=== PATIENT | male | born 2000 | race Caucasian/White ===

== ENCOUNTER 2022-03-25 20:51 | Emergency (ER) | payer MEDICAID, SELFPAY ==
--- NOTE | 2022-03-25 | ECG_ITS ---
Test Reason : chest pain Blood Pressure : / mmHG Vent. Rate : 078 BPM Atrial Rate : 078 BPM P-R Int : 152 ms QRS Dur : 082 ms QT Int : 382 ms P-R-T Axes : 076 080 036 degrees QTc Int : 435 ms Normal sinus rhythm with sinus arrhythmia Normal ECG No previous ECGs available Referred By: Generic ED Physician Electronically Signed By:HUNTER SUTTON
--- NOTE | ~2022-03-25 | NM_ITS ---
EXAMINATION: PULMONARY PERFUSION STUDY CLINICAL INFORMATION: Chest pain and cough. COMPARISON: No previous lung scan is available for comparison. Radiographs the chest dated 03/25/2022 are available for comparison. TECHNIQUE: Following the intravenous administration of 4.0 mCi Tc-99m MAA an 8-view perfusion study was performed using a dual detector gamma scintillation camera. No ventilation images were obtained. FINDINGS: Perfusion images: No segmental perfusion defects are present. Multiple wedge shaped peripherally based subsegmental perfusion defects are present bilaterally, predominantly in the upper lobes. The chest radiographs dated 03/25/2022 show no abnormalities that corresponds to the subsegmental perfusion defects described above. NM/NM pul perfusion IMPRESSION: Intermediate probability of pulmonary embolism. Follow-up with pulmonary embolism protocol CT scan of the chest is recommended.
--- NOTE | ~2022-03-25 | XR_ITS ---
EXAMINATION: XR CHEST CLINICAL INFORMATION: Chest pain and cough COMPARISON: None TECHNIQUE: 2 views of the chest were obtained. FINDINGS: No significant abnormality is noted involving the heart, lungs, mediastinum, bony thorax or soft tissues. XR/XR chest 2V IMPRESSION: Unremarkable examination.
--- NOTE | ~2022-03-25 | CT_ITS ---
EXAMINATION: CT ANGIOGRAM OF THE CHEST WITH CONTRAST (CT PULMONARY ANGIOGRAM FOR PE) CLINICAL INFORMATION: Chest pain. Evaluate for pulmonary embolism. COMPARISON: CXR from 03/25/2022 TECHNIQUE: Prior to contrast administration, noncontrast localization images were obtained. Subsequently, multidetector volumetric imaging was performed from the thoracic inlet to below the diaphragms following the administration of 65 mL Omnipaque 300 intravenous contrast. No contrast reaction reported. Sagittal, coronal, and MIP oblique sagittal reformatted images were obtained on the CT workstation, uploaded to PACS, and reviewed. This CT examination was performed using dose optimization techniques as appropriate, variously including the following: *Automated exposure control *Adjustment of mA and/or kV according to patient size (this includes techniques or standardized protocols for targeted exams where dose is matched to indication/reason for exam; i.e. extremities or head) *Use of iterative reconstruction technique DLP: Total exam dose-length product 446 mGy-cm FINDINGS: LUNGS AND PLEURA: The bronchial jamison are diffusely thickened. This could be a manifestation of asthma or bronchitis. There is mild patchy groundglass opacity in the medial right upper lobe and anteromedial right lower lobe from atelectasis or pneumonitis. No dense consolidation, edema or pleural effusion. No pneumothorax. QUALITY OF STUDY/CONTRAST BOLUS: Satisfactory. CARDIOVASCULAR: Pulmonary arteries are normal in size. No embolic filling defects in the main, lobar or segmental vessels. The heart size is normal. No pericardial effusion. Thoracic aorta is normal; no aneurysm or dissection. The great vessels arising from the top of the aortic arch are widely patent. MEDIASTINUM/LOWER NECK: The esophagus has normal wall thickness. The visualized portion of the thyroid gland is normal. There is some residual thymic tissue in the anterosuperior mediastinum. Pneumomediastinum is present. The gas within mediastinum tracks superiorly into the lower neck. LYMPHATICS: No pathologic sized axillary, hilar or mediastinal lymph nodes. UPPER ABDOMEN: No contrast reflux into the inferior vena cava. No acute abnormalities in the visualized solid or hollow viscera of the upper abdomen. There is likely a small calcified stone either within cystic duct or underdistended gallbladder. OSSEOUS STRUCTURES: No acute or suspicious osseous abnormality. CT/CT angio chest PE protocol IMPRESSION: * No evidence of pulmonary embolism. * The diffuse thickening of bronchial jamison could be a manifestation of asthma or bronchitis. Also, there are a few small patchy groundglass opacities from infectious or noninfectious pneumonitis. * Pneumomediastinum is present. A pneumomediastinum can occur when there is a rapid rise in intra-alveolar pressure in patients with asthma, during valsalva maneuver and/or vigorous coughing.
--- NOTE | ~2022-03-25 | CT_ITS ---
EXAMINATION: CT CHEST WITHOUT CONTRAST CLINICAL INFORMATION: Pneumomediastinum COMPARISON: CT angiogram chest approximately 2 hours ago. TECHNIQUE: Multidetector volumetric CT imaging of the chest was done. Axial MIP volume rendering provided. Sagittal and coronal reformatted images were obtained. No IV contrast was utilized for the exam. However, oral contrast was administered. This CT examination was performed using dose optimization techniques as appropriate, variously including the following: *Automated exposure control *Adjustment of mA and/or kV according to patient size (this includes techniques or standardized protocols for targeted exams where dose is matched to indication/reason for exam; i.e. extremities or head) *Use of iterative reconstruction technique DLP: 832 mGy-cm FINDINGS: LUNGS AND MEDIASTINUM: Since the prior study there's been no interval change. Once again noted is bronchial thickening and a small area of groundglass opacity in each lower lobe. Again seen is mediastinal emphysema. There is no convincing evidence of esophageal rupture. Residual thymic tissue is again seen. PLEURA: There is no pleural effusion. No pleural mass or thickening. No pneumothorax. AXILLA: No lymphadenopathy. UPPER ABDOMEN: Unremarkable. Contrast is present in the renal collecting systems from the prior administration. OSSEOUS STRUCTURES: Unremarkable. CT/CT chest wo con IMPRESSION: No interval change when compared to the prior study, 2 hours ago. Mediastinal emphysema is again seen. No convincing evidence of esophageal rupture. Fleischner guidelines were followed.
[2022-03-25 21:02] VITALS: BP 138/97; PULSE 66; RESP 18; TEMP 37; O2SAT 97; BMI 24.4
[2022-03-25 21:34] LABS: COVID-19 Test Negative (Negative); IDNOW Serial# 16C4AD1C
[2022-03-25 21:35] LABS: Influenza A Negative (Negative); Influenza B2 Negative (Negative)
[2022-03-26] VITALS (7 sets, daily range): BP systolic 128–143; BP diastolic 71–86; PULSE 54–80; RESP 12–17; TEMP 36.5–36.7; O2SAT 95–99
--- NOTE | 2022-03-26 08:01 | ED_ITS ---
HPI - Chest Pain General Chief Complaint: Chest Pain Stated Complaint: SoB, chest pain, on and off fever Time Seen by Provider: 03/26/22 07:55 Source: patient Mode of arrival: ambulatory Limitations: no limitations History of Present Illness HPI narrative: this is a 21 years old male presented to the ED complaining of shortness of breath and chest pain for couple of days , he endore also cough and fever complaint: chest pain Onset (ago): day(s) (2) Timing of current episode: constant Prior episodes: No Onset: during rest Pain location: substernal Pain radiation: none Exacerbating factors: nothing Risk Factors Coronary artery disease risk factors: none Related Data Previous Rx's Medication Instructions Recorded doxycycline monohydrate 100 mg 100 mg PO BID #14 cap 03/26/22 capsule prednisone 20 mg tablet 60 mg PO DAILY #12 tab 03/26/22 Allergies Allergy/AdvReac Type Severity Reaction Status Date / Time No Known Allergies Allergy Unverified 07/26/20 19:39 [No Known Allergies*] Review of Systems Review of Systems: Yes all other systems are reviewed and are negative Constitutional: Constitutional: Reports no additional constitutional complaints ENT: Reports system reviewed and no additional complaints, except as documented Cardiovascular: Cardiovascular: Reports no additional cardiovascular complaints Respiratory: Respiratory: Reports no additional respiratory complaints, Reports no additional respiratory complaints, Reports pain on inspiration and Reports pain with cough Integumentary/Breasts: Skin/Breast: Reports system reviewed and no additional complaints, except as docu [facility] Social History Social History Patient Tobacco Use Status: Never used Tobacco Use of substances other than those prescribed or required for medical reasons: No Advance Directives: No Advance Directives Information Provided: No Physical Exam Vital Signs: Vital Signs: Last Vital Signs Temp 97.7 F 03/26/22 07:44 Pulse 54 03/26/22 15:52 Resp 16 03/26/22 15:52 BP 143/77 H 03/26/22 15:52 Pulse Ox 98 03/26/22 15:52 BMI result Body Mass Index 24.4 Const: General: cooperative Nutritional Appearance: average body habitus Limitations: no limitations HEENT: Head: Yes normal to inspection Ears: hearing grossly normal bilaterally Face and sinus: Yes normal facial exam Mouth: Normal oral and palatal mucosa present Throat: Yes posterior oropharynx normal Neck: Neck: Yes normal visual inspection, Yes full ROM and Yes no lymphadenopathy Chest: Chest palpation & inspection: normal inspection of the chest Resp: Effort & Inspection: normal respiratory effort Auscultation: clear to auscultation bilaterally Cardio: Jugular venous distension: no JVD Rate: regular rate GI: Inspection: Yes normal to inspection Palpation (GI): Soft to palpation, not firm, nontender and no guarding : General: Yes no CVA tenderness Back/Spine/Pelvis: Back: no CVA tenderness Skin: General skin exam: no rashes or lesions noted, elasticity normal and turgor normal Lesions: no lesions Rashes: no rashes Course Reevaluation(s) Reevaluation #1: V/Q scan was equivocal, radiologist recommended CT angiography, at this point we waiting for the result of the CT angiography. The patient many hemodynamically stable anticipate discharge even if the CT is positive for PE he is a good candidate for p.o. anticoagulation should the CT be positive Reevaluation #2: CT SCAN SHOWED PNEUMOMEDIASTINUM LIKELY 2TH TO COUGH. sPOKE WITH THORACIC THEY RECCOMEND CT WITH GASTROGRAPHIN TO R/O ESOPHAGEAL PERF WILL DO THIS LAST STUDY SIGNED OFF TO dR MARROQUIN IF CT CHEST WITH NO PERF WILL D/C HOME ON AB AND PREDNISONE MDM - Chest Pain Lab Data Result diagrams: 03/26/22 08:18 03/26/22 08:18 Labs: Lab Results 03/25/22 03/25/22 03/26/22 Range/Units 21:07 21:07 08:17 WBC (4.8-10.8) X10*3/uL RBC (4.60-5.80) X10*6/uL Hgb (14.0-18.0) g/dl Hct (42.0-52.0) % MCV (80.0-98.0) fL MCH (27.0-33.0) pg MCHC (31.0-36.0) g/dl RDW (11.0-16.0) % Plt Count (160-400) X10*3/uL MPV (9.4-12.4) fL Immature Gran % (Auto) (0.0-0.4) % Neut % (Auto) (45-73) % Lymph % (Auto) (20-40) % [place] % (Auto) (2-11) % Eos % (Auto) (0-4) % Baso % (Auto) (0-2) % Lymph # (Auto) (1.2-4.9) X10*3/uL [place] # (Auto) (0.1-1.2) X10*3/uL Eos # (Auto) (0.0-0.4) X10*3/uL Baso # (Auto) (0.0-0.2) X10*3/uL Abs Immat Gran (auto) (0.00-0.03) X10*3/uL Absolute Neuts (auto) (2.0-8.3) x10*3/uL Absolute Nucleated RBC (0.0-0.012) X10*3/uL Nucleated RBC % (auto) (0.0-0.2) /100WBC D-Dimer High Sensitivty 244 NG/ML Sodium (135-145) mmol/L Potassium (3.3-5.1) mmol/L Chloride (96-108) mmol/L Carbon Dioxide (22-29) mmol/L Anion Gap (12-20) BUN (9-16) mg/dL Creatinine (0.5-1.4) mg/dL Estim Creat Clear Calc Estimated GFR Random Glucose (60-115) mg/dL Calcium (8.4-10.2) mg/dL Total Bilirubin (0.0-1.0) mg/dL AST (5-37) U/L ALT (0-40) U/L Alkaline Phosphatase (39-117) U/L Troponin I High Sens (<3.5-35.0) ng/L Total Protein (6.5-8.0) g/dL Albumin (3.5-5.0) g/dL COVID-19 (SOFIA) Negative (Negative) COVID-19 Clin Com See Note Influenza Type A (NIKA) Negative (Negative) Influenza Type B (NIKA) Negative (Negative) Influenza A & B Note See Note 03/26/22 03/26/22 03/26/22 Range/Units 08:18 08:18 08:18 WBC 7.9 (4.8-10.8) X10*3/uL RBC 5.04 (4.60-5.80) X10*6/uL Hgb 15.6 (14.0-18.0) g/dl Hct 44.6 (42.0-52.0) % MCV 88.5 (80.0-98.0) fL MCH 31.0 (27.0-33.0) pg MCHC 35.0 (31.0-36.0) g/dl RDW 12.1 (11.0-16.0) % Plt Count 217 (160-400) X10*3/uL MPV 9.7 (9.4-12.4) fL Immature Gran % (Auto) 0.1 (0.0-0.4) % Neut % (Auto) 63.8 (45-73) % Lymph % (Auto) 17.7 L (20-40) % [place] % (Auto) 10.7 (2-11) % Eos % (Auto) 7.1 H (0-4) % Baso % (Auto) 0.6 (0-2) % Lymph # (Auto) 1.4 (1.2-4.9) X10*3/uL [place] # (Auto) 0.8 (0.1-1.2) X10*3/uL Eos # (Auto) 0.6 H (0.0-0.4) X10*3/uL Baso # (Auto) 0.1 (0.0-0.2) X10*3/uL Abs Immat Gran (auto) 0.01 (0.00-0.03) X10*3/uL Absolute Neuts (auto) 5.0 (2.0-8.3) x10*3/uL Absolute Nucleated RBC 0.000 (0.0-0.012) X10*3/uL Nucleated RBC % (auto) 0.0 (0.0-0.2) /100WBC D-Dimer High Sensitivty NG/ML Sodium 140 (135-145) mmol/L Potassium 4.4 (3.3-5.1) mmol/L Chloride 103 (96-108) mmol/L Carbon Dioxide 27 (22-29) mmol/L Anion Gap 14 (12-20) BUN 9 (9-16) mg/dL Creatinine 0.92 (0.5-1.4) mg/dL Estim Creat Clear Calc 139.4 Estimated GFR > 60 Random Glucose 108 (60-115) mg/dL Calcium 10.5 H (8.4-10.2) mg/dL Total Bilirubin 1.9 H (0.0-1.0) mg/dL AST 22 (5-37) U/L ALT 33 (0-40) U/L Alkaline Phosphatase 72 (39-117) U/L Troponin I High Sens < 3.5 (<3.5-35.0) ng/L Total Protein 7.9 (6.5-8.0) g/dL Albumin 4.9 (3.5-5.0) g/dL COVID-19 (SOFIA) (Negative) COVID-19 Clin Com Influenza Type A (NIKA) (Negative) Influenza Type B (NIKA) (Negative) Influenza A & B Note Imaging Data Chest x-ray: Radiologist's impression: Accession Number(s): [id number] cc: Generic ED Physician~ EXAMINATION: XR CHEST CLINICAL INFORMATION: Chest pain and cough COMPARISON: None TECHNIQUE: 2 views of the chest were obtained. FINDINGS: No significant abnormality is noted involving the heart, lungs, mediastinum, bony thorax or soft tissues. XR/XR chest 2V IMPRESSION: Unremarkable examination. ECG Data ECG #1: ECG interpretation date: 03/26/22 ECG interpretation time: 08:05 Pacemaker model: normal sinus rhythm rate 78 no ischemic changes Discharge Plan Discharge Clinical Impression: Chest pain, Pneumomediastinum Patient Disposition: Home, Self-Care Instructions: Chest Pain (DC), Acute Bronchitis (ED) Additional Instructions: FOLLOW-UP WITH YOUR PRIMARY CARE PHYSICIAN RETURN TO THE EMERGENCY ROOM IF YOU WORSE ANY CONCERN, SUCH FEVER VOMITING Prescriptions: New prednisone 20 mg tablet 60 mg PO DAILY Qty: 12 0RF doxycycline monohydrate 100 mg capsule 100 mg PO BID Qty: 14 0RF Referrals: Physician,Unknown J [Primary Care Provider] - 2 days Stand Alone Forms: Work/School Release
[2022-03-26 08:21] LABS: MANUAL DIFF FLAG NO
[2022-03-26] MEDS: Ibuprofen 800 MG TABLET PO (08:24)
[2022-03-26 08:27] LABS: Basophils Absolute Auto 0.1 X10*3/uL (0.0-0.2); Basophils Percent Auto 0.6 % (0-2); Eosinophils Absolute Auto 0.6 X10*3/uL (0.0-0.4); Eosinophils Percent Auto 7.1 % (0-4); Hematocrit 44.6 % (42.0-52.0); Hemoglobin 15.6 g/dl (14.0-18.0); Imm Gran Abs Auto 0.01 X10*3/uL (0.00-0.03); Imm Gran Pct Auto 0.1 % (0.0-0.4); Lymphocytes Absolute Auto 1.4 X10*3/uL (1.2-4.9); Lymphocytes Percent Auto 17.7 % (20-40); Mean Corpuscular Volume 88.5 fL (80.0-98.0); Mean Platelet Volume 9.7 fL (9.4-12.4); Monocytes Absolute Auto 0.8 X10*3/uL (0.1-1.2); Monocytes Percent Auto 10.7 % (2-11); Neutrophils Percent Auto 63.8 % (45-73); Platelet Count 217 X10*3/uL (160-400); Red Blood Count 5.04 X10*6/uL (4.60-5.80); Red Cell Distribution Width 12.1 % (11.0-16.0); White Blood Count 7.9 X10*3/uL (4.8-10.8)
--- NOTE | 2022-03-26 08:31 | PC.NURSE ---
Ppt alert/oriented. States central cp since yesterday, recent URI sx. LS with slight exp wheeze noted, Dr Junior aware, treatment to be ordered. Ibuprofen given for pain control
[2022-03-26 08:37] LABS: D Dimer High Sensitivity 244 NG/ML
[2022-03-26 08:40] LABS: Alanine Aminotransferase 33 U/L (0-40); Albumin Level 4.9 g/dL (3.5-5.0); Alkaline Phosphatase 72 U/L (39-117); Anion Gap 14 (12-20); Aspartate Amino Transferase 22 U/L (5-37); Bilirubin Total 1.9 mg/dL (0.0-1.0); Blood Urea Nitrogen 9 mg/dL (9-16); Calcium 10.5 mg/dL (8.4-10.2); Carbon Dioxide 27 mmol/L (22-29); Chloride 103 mmol/L (96-108); Creatinine Clr Calc Pharmacy 139.4; Estimated Glomerular Filt Rate > 60; Glucose Random 108 mg/dL (60-115); Potassium 4.4 mmol/L (3.3-5.1); Sodium 140 mmol/L (135-145); Total Protein 7.9 g/dL (6.5-8.0)
[2022-03-26] MEDS: Albuterol/Iprat 2.5/0.5MG 3 ML AMPUL.NEB INHALE (08:42)
[2022-03-26 08:48] LABS: Troponin-I High Sensitivity < 3.5 ng/L (<3.5-35.0)
--- NOTE | 2022-03-26 08:54 | PC.NURSE ---
Treatment given by resp
--- NOTE | 2022-03-26 09:47 | PC.NURSE ---
IV established, awaits VQ scan. States cp better s/p Motrin and breathing improved s/p treatment.
[2022-03-26] MEDS: iohexoL 350 MG/ML 100 ML INFUS..BTL IV (14:50)
[2022-03-26] MEDS: iohexoL 350 MG/ML 75 ML INFUS..BTL 65 ML IV (14:53)
[2022-03-26] MEDS: Diatrizoate Meglumine, Sodium 30 ML SOLUTION PO (17:02)
[2022-03-26] MEDS: cefTRIAXone sodium 1 GM in 0.9 % Sodium Chloride 50 ML IV (17:03)
[2022-03-26] MEDS: methylPREDNISolone Sod Succ 125 MG/2 ML VIAL IVPUSH (17:03)
== END 2022-03-26 20:22 | disposition home or self-care (01) ==
PROVIDERS: Emergency Medicine; Emergency Provider Internal Medicine
DX: R07.9 Chest pain, unspecified (principal); J98.2 Interstitial emphysema; Z20.822 Contact with and (suspected) exposure to COVID-19
CPT/HCPCS: 36415; 71046; 71250; 71275; 78580; 80053; 84484; 85025; 85379; 87502; 87635; 93005; 94640; 96365; 96375; 99284; 99285; A9537; A9540; J0696; J2930; Q9967